=== PATIENT | male | born 1995 | race Caucasian/White ===

== ENCOUNTER 2021-08-08 07:28 | Outpatient (REF) | payer OTHER, SELFPAY ==
[2021-08-08 11:52] LABS: Appearance Urine CLEAR; Color Urine YELLOW; Glucose Urine UA NEG (NEG); Leukocyte Esterase Urine NEG (NEG); Nitrite Urine NEG (NEG); PH 6.5 (5.0-8.0); Urine Blood NEG (NEG); Urine Ketones NEG (NEG); Urine Protein NEG (NEG-TRACE)
[2021-08-08 12:01] LABS: Alanine Aminotransferase 27 U/L (0-40); Albumin Level 4.7 g/dL (3.5-5.0); Anion Gap 13 (12-20); Aspartate Amino Transferase 18 U/L (5-37); Bilirubin Total 0.8 mg/dL (0.0-1.0); Blood Urea Nitrogen 17 mg/dL (9-16); Calcium 9.7 mg/dL (8.4-10.2); Carbon Dioxide 27 mmol/L (22-29); Chloride 103 mmol/L (96-108); Estimated Glomerular Filt Rate > 60; Glucose Fasting 83 mg/dL (60-99); Potassium 4.3 mmol/L (3.3-5.1); Sodium 139 mmol/L (135-145); Total Protein 7.9 g/dL (6.5-8.0)
[2021-08-08 12:02] LABS: Alkaline Phosphatase 65 U/L (39-117); Cholesterol 202 mg/dL; HDL Cholesterol 65 mg/dL; LDL Cholesterol Calculated 125 mg/dl; Triglycerides 62 mg/dL
[2021-08-08 12:11] LABS: TSH reflex Free T4 1.63 uIU/mL (0.32-4.0)
== END 2021-08-08 07:29 | disposition home or self-care (01) ==
LOC: HO.HMGCLDS 07:28
PROVIDERS: PCP Nurse Practitioner Family; Visit Provider Nurse Practitioner Family
DX: F33.9 Major depressive disorder, recurrent, unspecified (principal)
CPT/HCPCS: 36415; 80053; 80061; 81003; 84443

== ENCOUNTER 2023-07-01 07:44 | Outpatient (AMB) | payer OTHER, SELFPAY ==
--- NOTE | 2023-07-01 07:15 | A.OFFPC_ITS ---
Intake Visit Reasons: Discuss Mental Health Iphone [phone] Allergies No Known Allergies Allergy (Unverified 02/05/23 17:09) Tobacco use date assessed: 02/05/23 HPI Discuss Mental Health Iphone [phone] HPI Details Pt c/o increased anxiety and depression. Pt is currently taking sertraline 50mg and is compliant with this med. Will increase this to 100mg. Denies any SI and HI. Will follow up with pt in approx 1 month PFSH Family History Other Mental health disorder Social History Housing: House Patient Tobacco Use Status: Current someday Tobacco user Tobacco use type: Cigarette Cigarettes Per Day: 1 Second Hand Smoke Exposure: No Current occupational status: employed Cognitive needs: No Hearing needs: No Vision needs: No Questionnaire Thrive Questionnaire Date Thrive assessed: 02/05/23 MATHEW-7 AMB Questionnaire MATHEW-7 Date MATHEW - 7 assessed: 02/05/23 Source: Developed by Drs. Parth Kiran, Yara Abdi, Jimmy Nguyen and colleagues, with an educational maryanne from [employer]. Review of Systems Const Reports as per HPI Physical exam (Primary Care) Tobacco/Smoking Status: Tobacco use Status Tobacco use date assessed 02/05/23 02/05/23 16:54 Patient Tobacco Use Status Current someday Tobacco 02/05/23 16:54 Tobacco use type Cigarette 02/05/23 16:54 Thrive Assessment: Date of Thrive Assessment Date Thrive assessed 02/05/23 02/05/23 16:56 Const General: cooperative Orientation/consciousness: patient oriented x3 Neuro General: patient oriented x3 Psych Appearance: grossly normal Mental Status: mental status grossly normal Speech and movement: Clear speech present Affect: normal affect Attitude: cooperative Thought process: Normal thought process present Thought content: Normal thought content present Insight: Good insight present (Psych) Judgement: Good judgement present (Psych) Telehealth Telehealth Location of provider rendering services: practice address Location of patient: address on file Patient Identification confirmed using: Name, : Yes Telehealth method: video Patient verbally consented to treatment: Yes Patient verbally consented to billing insurance company: Yes Patient informed of any privacy concerns related to visit: Yes Minutes spent on Phone/Video with Pt.: 10 Assessment and Plan Assessment & Plan (1) Depression, major, recurrent: Code(s): F33.9 - Major depressive disorder, recurrent, unspecified Plan: Increased sertraline to 100mg (2) Anxiety: Code(s): F41.9 - Anxiety disorder, unspecified Plan: Increased sertraline to 100mg Plan The patient agreed to the use of a medical information specialist for this encounter. Scribed for TACHO Nieto by Ángela Peacock medical information specialist, on 07/01/2023 at 07:15 EST. Medications: Changed From sertraline 50 mg PO DAILY 30 days 30 tabs 2RF To sertraline 100 mg PO DAILY 30 days 30 tabs 2RF Coding Level of Care Code Tele Est Pt Level 3 (32086) Diagnoses Depression, major, recurrent F33.9 Anxiety F41.9
== END 2023-07-01 07:47 | disposition home or self-care (01) ==
PROVIDERS: PCP Nurse Practitioner Family; Visit Provider Nurse Practitioner Family
DX: F33.9 Major depressive disorder, recurrent, unspecified (principal); F41.9 Anxiety disorder, unspecified
CPT/HCPCS: 99213

== ENCOUNTER 2023-09-17 12:55 | Emergency (ER) | payer OTHER, SELFPAY ==
--- NOTE | ~2023-09-17 | XR_ITS ---
EXAMINATION: XR WRIST, LEFT CLINICAL INFORMATION: Laceration from chainsaw COMPARISON: None available. TECHNIQUE: PA, lateral, and oblique views of the left wrist. FINDINGS: There is a question of a tiny bone fragment arising from the pisiform seen only on the lateral radiograph (fleming image). This appears to be in the region of the skin wound. The bones and soft tissues are otherwise unremarkable. No other fracture. Alignment is anatomic with normal joint spaces. No erosions or abnormal soft tissue calcifications. XR/XR wrist LT 2V IMPRESSION: Question of a tiny bone fragment arising from the pisiform seen only on the lateral radiograph.
[2023-09-17 12:59] VITALS: BP 126/89; BP 167/81; PULSE 70; PULSE 92; RESP 16; TEMP 37; O2SAT 98; O2SAT 99; BMI 24.4
--- NOTE | 2023-09-17 13:11 | ED_ITS ---
HPI - Extremity Problem General Chief complaint: Extremity Injury, Upper Stated complaint: cut l wrist w/table saw @ work,not bleeding per em Time Seen by Provider: 09/17/23 12:57 Source: patient, EMS and RN notes reviewed Mode of arrival: EMS Limitations: no limitations History of Present Illness HPI Narrative: Patient is a 28-year-old male presenting to the emergency department with laceration to left wrist sustained on a band saw accidentally at work prior to arrival. Reports last Tdap was 2017. Reports minimal pain at this time. Reports full ROM to fingers, denies any numbness or tingling. MD Complaint: other (wrist laceration) Onset (ago): hour(s) Pain Consistency: constant Location: left, upper extremity and other (wrist) Severity scale (1-10): 2 Quality: aching Radiation: none Relieving factors: nothing Exacerbating factors: nothing Associated symptoms: denies other symptoms Related Data Previous Rx's Medication Instructions Recorded cetirizine 10 mg tablet 10 mg PO DAILY #90 tabs 08/08/21 sertraline 100 mg tablet 100 mg PO DAILY 30 days #30 tabs 07/01/23 cephalexin 500 mg capsule 500 mg PO QID 5 days #20 caps 09/17/23 Allergies Allergy/AdvReac Type Severity Reaction Status Date / Time No Known Allergies Allergy Unverified 09/17/23 13:04 Review of Systems Review of Systems: As per HPI. Yes all other systems are reviewed and are negative Constitutional: Constitutional: Reports as per HPI [facility] Family History Family History Other Mental health disorder Social History Social History Housing: House Patient Tobacco Use Status: Current someday Tobacco user Tobacco use type: Cigarette Cigarettes Per Day: 1 Second Hand Smoke Exposure: No Advance Directives: No Current occupational status: employed Cognitive needs: No Hearing needs: No Vision needs: No Physical Exam Vital Signs: Vital Signs: Last Vital Signs Temp 98.6 F 09/17/23 12:59 Pulse 92 09/17/23 12:59 Resp 16 09/17/23 12:59 BP 167/81 H 09/17/23 12:59 Pulse Ox 99 09/17/23 12:59 O2 Del Method Room Air 09/17/23 12:59 BMI result Body Mass Index 24.4 Vital signs have been reviewed and appear to be correct. Blood pressure elevated. Heart rate normal. Respiratory rate normal. Temperature normal. Oxygen saturation normal. Const: General: cooperative, healthy appearing and no acute distress Orientation/consciousness: oriented to person, oriented to place, oriented to time and patient oriented x3 Limitations: no limitations HEENT: Head: Yes normocephalic and Yes atraumatic Ears: external ears normal General nose exam: Normal external nose present Face and sinus: Yes face symmetric Mouth: oropharynx normal and moist mucous membranes Throat: Yes uvula midline Eyes: Pupils: Equal, round and reactive pupils present Neck: Neck: Yes normal visual inspection and Yes supple Resp: Effort & Inspection: normal respiratory effort and able to speak in complete sentences Auscultation: clear to auscultation bilaterally Cardio: Rate: regular rate Rhythm: regular rhythm Heart sounds: S1 normal heart sound present and S2 normal heart sound present Skin: General skin exam: elasticity normal and turgor normal Trauma: laceration (4cm) left distal wrist linear, involves subcutaneous tissue, motor nerve function intact and sensation intact; not actively bleeding and no pulsatile bleeding Neuro: General: oriented to person, oriented to place, oriented to time, patient oriented x3, moves all extremities, no focal motor deficits and CN's II- XI intact bilaterally Cranial nerves: Yes Equal, round and reactive pupils present Cognition (Neuro): normal cognition Extrem: General: Yes full ROM Psych: Mental Status: mental status grossly normal Affect: normal affect Thought process: Normal thought process present Medications Administered Discontinued Medications Generic Name Dose Route Start Last Admin Trade Name Freq PRN Reason Stop Dose Admin Lidocaine HCl 5 ml 09/17/23 13:55 09/17/23 14:09 Lidocaine Hcl 1 % Mpf 5 Ml Vial INFILTRATI 09/17/23 13:56 5 ml ONCE ONE Administration Medical Decision Making Medical Decision Making [facility] Narrative: Patient is a 28-year-old male presenting to the emergency department with laceration to left wrist sustained on a band saw accidentally at work prior to arrival. On exam patient is awake, A+Ox3, VS WNL, afebrile, normal neurological exam without focal deficits, physical exam findings as above. Given reported symptoms and physical exam findings, initial differential includes laceration, open fracture. Tdap is up-to-date. Laceration repaired as per procedure note. Question of tiny bone fragment on x-ray, will give IV Ancef here and discharged home on cephalexin. Discussed case with ortho who will see patient in the office outpatient next week. Return precautions discussed. Patient instructed to assess wound daily for signs of infection and return if these occur. Patient verbalized understanding of and agreement with plan. Differential Diagnosis Differential Diagnoses: The differential diagnosis associated with the presentation includes As per MDM. Consult Healthcare Provider Management of the patient was discussed with: [employer] Installation Manager (Dr. Castro, ortho) Independent Interpretation I performed an independent interpretation of an: Plain X-Ray Interpretation: Possible tiny bone fragment from pisiform. Radiology Impression Discussion of test interpretation with radiology: I have reviewed the radiologist's reading. Radiologist Impression: XR/XR wrist LT 2V IMPRESSION: Question of a tiny bone fragment arising from the pisiform seen only on the lateral radiograph. External Record Review External record reviewed: Inpatient record, Office record and Outpatient record Prescription Management I considered prescription management with: Antibiotic Procedures Laceration Laceration 1: Site: upper extremity (wrist, radial side) Side (If applicable): left Size (cm): 4 Description: linear Depth: simple, single layer Local Anesthetic: lidocaine 1% Amount of anesthesia used (mL): 5 Pre-repair: wound explored, irrigated extensively and deep structures intact Skin layer closed with: nylon Size (cm): 4-0 Number of sutures: 9 Technique: simple, interrupted Discharge Plan Discharge Clinical Impression: Laceration of left wrist Open fracture of pisiform bone of wrist Qualifiers: Encounter type: initial encounter Laterality: left Patient Disposition: Home, Self-Care Instructions: Care For Your Stitches (DC), Laceration (DC), Stitches Removal (ED) Additional Instructions: You have been evaluated in the emergency department today for a laceration to your wrist. Your laceration was repaired in the emergency department with sutures. Please keep the area surrounding the laceration clean and dry and keep dressing in place for the next 24 hours. After that please change the dressing and assess the wound daily. Keep the area out of direct sunlight for the next 6 months to help prevent scarring. You should have the sutures removed in 7-10 days. If you develop fever, redness, swelling at the site of your laceration, or thick yellow drainage please come back to the ER for a wound check. Your x- ray showed evidence of a tiny bone fragment in the area of your laceration. You are being referred to orthopedics for further management, please call their office for an appointment. You are being prescribed antibiotics because this is an open fracture, please complete the full course of antibiotics as prescribed. Prescriptions: New cephalexin 500 mg capsule 500 mg PO QID 5 Days Qty: 20 0RF No Action cetirizine 10 mg tablet 10 mg PO DAILY Qty: 90 1RF sertraline 100 mg tablet 100 mg PO DAILY 30 Days Qty: 30 2RF Referrals: [facility] [place] Group] Stand Alone Forms: Work/School Release
[2023-09-17] MEDS: Lidocaine HCl 1 % MPF 5 ML VIAL INFILTRATI (14:09)
[2023-09-17] MEDS: ceFAZolin Sodium/Dextrose,Iso 2 GM/50 ML PIGGYBACK IV (15:24)
--- NOTE | 2023-09-17 15:52 | PC.NURSE ---
Late entry: patient brought in by ambulance from work, per patient he accidentally cut his wrist on a bandsaw. CMS intact in left hand, 2 inch laceration to left wrist, bleeding controlled. Patient reports intial 2/10 pain. Yes[facility] SURG RN sutured inj. This RN placed 20g IV in RAC, Ancef administered per JAN. Patient educated on discharge instructions and has no further questions at this time
== END 2023-09-17 15:55 | disposition home or self-care (01) ==
PROVIDERS: Emergency Provider Student in an Organized Health Care Education/Training Program; PCP Nurse Practitioner Family
DX: S61.512A Laceration without foreign body of left wrist, initial encounter (principal); S62.162A Displaced fracture of pisiform, left wrist, initial encounter for closed fracture; W31.2XXA Contact with powered woodworking and forming machines, initial encounter; Y93.9 Activity, unspecified; Y92.9 Unspecified place or not applicable; Y99.0 Civilian activity done for income or pay; F17.210 Nicotine dependence, cigarettes, uncomplicated
CPT/HCPCS: 12002; 73100; 96365; 99283; 99284; J0690

== ENCOUNTER 2023-12-22 20:13 | Emergency (ER) | payer OTHER, SELFPAY ==
--- NOTE | ~2023-12-22 | XR_ITS ---
EXAMINATION: XR RIBS, RIGHT CLINICAL INFORMATION: Injury rule out fracture COMPARISON: None available. TECHNIQUE: 3 views of the right ribs were obtained. FINDINGS: PA chest and 3 views of right rib cage demonstrate no acute fractures and again there are 2 undisplaced fractures seen through the midshaft of the clavicle. Lungs are clear cardiomediastinal silhouette is normal and there is no evidence of pleural effusion XR/XR ribs RT min 3V w CXR1V IMPRESSION: Clinical or fractures.
--- NOTE | ~2023-12-22 | CT_ITS ---
EXAMINATION: CT CHEST WITHOUT CONTRAST CLINICAL INFORMATION: Trauma. Concern for fracture. COMPARISON: None available. TECHNIQUE: Multidetector volumetric CT imaging of the chest was done. Axial MIP volume rendering provided. Sagittal and coronal reformatted images were obtained. This CT examination was performed using dose optimization techniques as appropriate, variously including the following: *Automated exposure control *Adjustment of mA and/or kV according to patient size (this includes techniques or standardized protocols for targeted exams where dose is matched to indication/reason for exam; i.e. extremities or head) *Use of iterative reconstruction technique DLP: 424 mGy-cm FINDINGS: IT TECHNICAL ARCHITECT: Unremarkable. LUNGS: The lungs are clear with no evidence of inflammation or nodules. MEDIASTINUM: The mediastinum is normal. CORONARY ARTERY CALCIFICATION: None visualized on this study. PLEURA: There is no pleural effusion. No pleural mass or thickening. AXILLA: No lymphadenopathy. UPPER ABDOMEN: The liver is of diminished attenuation. OSSEOUS STRUCTURES: There is an undisplaced fracture of the distal one third of the right clavicle. CT/CT chest wo IV con IMPRESSION: 1. Undisplaced fracture of the distal one third of the right clavicle. 2. Hepatic steatosis. Fleischner guidelines were followed.
--- NOTE | ~2023-12-22 | XR_ITS ---
EXAMINATION: XR SHOULDER, RIGHT CLINICAL INFORMATION: Right shoulder trauma COMPARISON: None available. TECHNIQUE: AP external rotation, Grashey, scapular Y views of the right shoulder. FINDINGS: There are 2 linear fractures seen through the midshaft of the clavicle. The bones and soft tissues are normal. No fracture. Glenohumeral and acromioclavicular alignment is anatomic with normal joint space. No abnormal soft tissue calcifications. XR/XR shoulder RT min 2V IMPRESSION: Normal right shoulder. Fractures in the clavicle
--- NOTE | ~2023-12-22 | XR_ITS ---
EXAMINATION: XR CLAVICLE, RIGHT CLINICAL INFORMATION: Injury COMPARISON: None available. TECHNIQUE: 2 views of clavicle of the right clavicle. FINDINGS: There are 2 fractures seen through the clavicle without displacement of fragments no fracture is seen in the mid clavicular body. XR/XR clavicle RT IMPRESSION: 2 linear fractures through the mid clavicular body without displacement.
--- NOTE | ~2023-12-22 | CT_ITS ---
EXAMINATION: CT head/brain wo IV con, CT cervical spine wo IV con INDICATION INFORMATION: Reason for Exam LOC, injury COMPARISON: None TECHNIQUE: Separate noncontrast CT examinations of the head and cervical spine were performed. Coronal and sagittal images were created for each examination at the technologist workstation. This CT examination was performed using dose optimization techniques as appropriate, variously including the following: *Automated exposure control *Adjustment of mA and/or kV according to patient size (this includes techniques or standardized protocols for targeted exams where dose is matched to indication/reason for exam; i.e. extremities or head) *Use of iterative reconstruction technique DLP: 11 70 mGy-cm FINDINGS: Head: No acute osseous or soft tissue abnormality. The mastoid air cells and visualized portions of the paranasal sinuses are well aerated. There is no evidence of acute intracranial hemorrhage or territorial infarction. No abnormal mass effect or midline shift is seen. Islas to white matter differentiation is well preserved. No extra-axial fluid collections are identified. No hydrocephalus. No significant volume loss. There is no abnormal attenuation within the brain parenchyma. Cervical spine: There is no evidence of acute cervical spine fracture. Vertebral bodies remain normal in height. Alignment is maintained. Disc space heights are maintained. No pre- or paravertebral soft tissue abnormality is identified. Visualized portions of the lung apices are unremarkable. The thyroid gland is unremarkable. Minimally displaced right mid clavicle fracture with adjacent hematoma. CT/CT cervical spine wo IV con IMPRESSION: 1. No acute intracranial abnormality. 2. No cervical spine fracture or traumatic malalignment. 3. Minimally displaced right mid clavicle fracture
[2023-12-22 20:22] VITALS: BP 136/91; PULSE 88; RESP 18; TEMP 36.8; O2SAT 97; BMI 24.4
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
--- NOTE | 2023-12-22 20:57 | PC.NURSE ---
Pt had one episode of vomiting in CT, sts related to standing for xrays, became dizzy with no LOC. CT completed successfully.
[2023-12-23 00:05] VITALS: BP 123/81; PULSE 81; RESP 16; TEMP 36.8; O2SAT 97
[2023-12-23 00:55] VITALS: BP 127/80; PULSE 84; RESP 16; TEMP 36.8; O2SAT 97
--- NOTE | 2023-12-23 02:18 | PC.NURSE ---
pt a&o, cms intact upon discharge, no respiratory distress, Reviewed discharge instructions with pt pt verbalized understanding. pt had a steady gait upon discharge.
== END 2023-12-23 02:21 | disposition home or self-care (01) ==
PROVIDERS: Emergency Provider Student in an Organized Health Care Education/Training Program; PCP Nurse Practitioner Family
DX: S42.001A Fracture of unspecified part of right clavicle, initial encounter for closed fracture (principal); R07.89 Other chest pain; M25.511 Pain in right shoulder; R51.9 Headache, unspecified; M54.2 Cervicalgia; R07.81 Pleurodynia; V86.55XA Driver of 3- or 4- wheeled all-terrain vehicle (ATV) injured in nontraffic accident, initial encounter; Y93.9 Activity, unspecified; Y92.410 Unspecified street and highway as the place of occurrence of the external cause; Y99.9 Unspecified external cause status; F17.210 Nicotine dependence, cigarettes, uncomplicated
CPT/HCPCS: 70450; 71101; 71250; 72125; 73000; 73030; 99284

== ENCOUNTER 2024-09-21 08:09 | Outpatient (AMB) | payer OTHER, BC, SELFPAY ==
--- NOTE | 2024-09-21 07:06 | A.OFFPC_ITS ---
Intake Visit Reasons: Regular visit Allergies No Known Allergies Allergy (Verified 09/21/24 07:06) Medication List - Last Reconciled 09/21/24 by TACHO Laguerre cetirizine 10 mg PO DAILY fluoxetine 20 mg PO DAILY Tobacco use date assessed: 02/05/23 HPI Regular visit HPI Details Anxiety/depression: Pt reports recently being admitted to an inpatient program due to SI. His sertraline was stopped and he was started on fluoxetine 20mg. Pt is seeing a psychiatrist in approx 3 weeks. Denies any current SI and HI. I will reach out to our provider to help pt find a requested in house therapist rather than telehealth therapist. He knows to go to the ER with any SI. NOTE: pt is going through a divorce. He has started a new job as well. He is excited to be done with this and move on with the divorce. [facility] Family History Other Mental health disorder Social History Housing: House Patient Tobacco Use Status: Current someday Tobacco user Tobacco use type: Cigarette Cigarettes Per Day: 1 Second Hand Smoke Exposure: No Current occupational status: employed Cognitive needs: No Hearing needs: No Vision needs: No Questionnaire Thrive Questionnaire Date Thrive assessed: 02/05/23 MATHEW-7 AMB Questionnaire MATHEW-7 Date MATHEW - 7 assessed: 02/05/23 Source: Developed by Drs. Parth Kiran, Yara Abdi, Jimmy Nguyen and colleagues, with an educational maryanne from [employer]. Review of Systems Const Reports as per HPI Physical exam (Primary Care) Tobacco/Smoking Status: Tobacco use Status Tobacco use date assessed 02/05/23 09/21/24 07:06 Patient Tobacco Use Status Current someday Tobacco 09/21/24 07:06 Tobacco use type Cigarette 09/21/24 07:06 Thrive Assessment: Date of Thrive Assessment Date Thrive assessed 02/05/23 09/21/24 07:06 Const General: cooperative Orientation/consciousness: patient oriented x3 Neuro General: patient oriented x3 Psych Appearance: grossly normal Mental Status: mental status grossly normal Speech and movement: Clear speech present Affect: normal affect Attitude: cooperative Thought process: Normal thought process present Thought content: Normal thought content present Insight: Good insight present (Psych) Judgement: Good judgement present (Psych) Telehealth Telehealth Telehealth Platform: [employer] Location of provider rendering services: practice address Location of patient: address on file Patient Identification confirmed using: Name, : Yes Telehealth method: video Patient verbally consented to treatment: Yes Patient verbally consented to billing insurance company: Yes Patient informed of any privacy concerns related to visit: Yes Minutes spent on Phone/Video with Pt.: 10 Coding Level of Care Code Tele Est Pt Level 3 (47958) Diagnoses Depression, major, recurrent F33.9 Assessment & Plan Assessment & Plan (1) Depression, major, recurrent: Code(s): F33.9 - Major depressive disorder, recurrent, unspecified Category: Medical Plan: currently started on fluoxetine (approx 2 weeks ago). Does not have any current SI or HI. Pt will be meeting with his psychiatrist in approx 3 weeks. Knows to seek help if SI returns. Will reach out to our team to help find pt a in house therapist. Plan The patient agreed to the use of a durable medical equipment repairer for this encounter. Scribed for TACHO Nieto by Ángela Peacock durable medical equipment repairer, on 09/21/2024 at 07:05 EST.
== END 2024-09-21 08:09 | disposition home or self-care (01) ==
LOC: HO.HMCC 08:09
PROVIDERS: PCP Nurse Practitioner Family; Visit Provider Nurse Practitioner Family
DX: F33.9 Major depressive disorder, recurrent, unspecified (principal)

== ENCOUNTER → 2024-11-08 09:00 | Outpatient (BNV) | payer OTHER, SELFPAY | PROVIDERS: Visit Provider Psychiatry & Neurology Psychiatry | DX: F32.A Depression, unspecified (principal); F41.9 Anxiety disorder, unspecified; F10.10 Alcohol abuse, uncomplicated | CPT/HCPCS: 90792 ==

== ENCOUNTER 2024-12-02 09:00 | Outpatient (RCR) | payer OTHER, SELFPAY ==
[2024-11-07 09:50] VITALS: BMI 22.1
[2024-11-07 10:00] VITALS: BP 104/68; PULSE 76; TEMP 36.7
--- NOTE | 2024-11-07 12:29 | PC.ADMIT ---
Patient is a 29 year old male who is from his who self referred to [facility] d/t increased depression and anxiety since August 2024. Patient is in the process of a divorce from his after 6 months of marriage. He stated he does not know why his wants a divorce. He stated they have known each other for 3 years and have lived together for 2 of those years. 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 Patient feels he is having a difficult time concentrating when he is thinking about the divorce. He reports his parents are supportive and is spending a lot of time with them. Patient stated he is working while attending the program as he stated his work is scheduled 4 days on work then 4 days off work. He is scheduled this week to attend the program on Thursday, Thursday, and . Patient reports history of drinking alcohol on the weekends with friends drinking 5-6 beers and 2-3 shots. Stated about 3 months ago he stopped using alcohol then about a month ago he started drinking 2-3 beers daily. After he met with is prescriber on October 14, 2024 and had a conversation about his alcohol use he decided to quit drinking alcohol. Patient also cut back on Marijuana use and currently uses once in a while compared to using daily throughout the day which started in August 2024. Patient is alert and oriented x4. Calm and cooperative. He presented with depressed mood and anxious affect. He denied SI, no HI. His thoughts are logical and clear. He was given a copy of his safety plan if needed. Medications reconciled with patient and patient's pharmacy. He has a history of non compliance with medication however he reports he is currently taking his medications as prescribed. He stated he currently has a morning routing that helps him remember to take medications daily.
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
--- NOTE | 2024-11-10 16:10 | HO.IOP ---
Client's case has been opened and reviewed in team.
--- NOTE | 2024-11-15 21:50 | P.PNPSP_ITS ---
Subjective Subjective Date of Service: 11/15/24 Reason For Visit: anxiety,SADD Mental Status Exam Mental Status Exam Narrative: Alert, oriented, in no acute distress. Calm, cooperative, engaged. No psychomotor agitation or neurovegetative retardation. Eye contact maintained. Mood depressed, affect constricted. Speech normal. Thought process linear, coherent. Thought content related to stressors, transient hopelessness, denies SI or HI. No paranoia or delusional content elicited. No evidence of psychosis. Insight and judgment - fair but adequate. Diagnostics Vital Signs (24Hr): BMI result Body Mass Index 22.1 Assessment & Plan Assessment & Plan (1) Depressive disorder: Status: Acute Code(s): F32.A - Depression, unspecified Assessment and Plan: Hx of Seasonal affective disorder MDD, single, moderate vs Adjustment Disorder (2) Anxiety disorder, unspecified: Status: Acute Code(s): F41.9 - Anxiety disorder, unspecified (3) Attention and concentration deficit: Status: Acute Code(s): R41.840 - Attention and concentration deficit Plan start buproprion SR 100 mg qam start guanfacine ER 1 mg qam to target anxiety (in lieu of propranolol) hold propranolol continue fluoxetine 40 mg qam continue lorazepam 0.5 mg qd (#7) to help with social anxiety and tolerating groups may consider buspirone if anxiety persists, or mirtazapine for sleep continue other regular medications? Routine lab work ordered as indicated EKG, routine for baseline QTc for medication considerations as indicated UDS as indicated Continue to monitor Certification I certify that the patient needs IOP Services for a minimum of 9 hours per week of therapeutic services. I certify the patient is experiencing symptoms of such intensity that they are unable to be safely treated in a less intensive setting and would otherwise require?admission to a more intensive level of care. Total time managing care of this patient today ____ minutes. Discharge Plan Discharge Attending provider: Katelyn Solomon Medications: New dextroamphetamine-amphetamine 5 mg capsule,extended release 24hr 5 mg PO QAM Qty: 30 0RF Rx Instructions: Partial Fill upon patient request. dextroamphetamine-amphetamine 5 mg tablet 5 mg PO DAILY Qty: 20 0RF Rx Instructions: Partial Fill upon patient request. guanfacine 2 mg tablet extended release 24 hr 2 mg PO DAILY Qty: 30 0RF guanfacine 1 mg tablet extended release 24 hr 1 mg PO QPM Qty: 30 0RF fluoxetine 10 mg capsule 30 mg PO DAILY Qty: 90 0RF Continued propranolol 20 mg Tablet 20 mg PO TID Rx Instructions: Last filled 10/15/24 Discontinued clonazepam 0.5 mg Tablet 0.5 mg PO DAILY PRN (Reason: Anxiety) Rx Instructions: Last filled 10/15/24 hydroxyzine HCl 25 mg Tablet 25 mg PO TID PRN (Reason: Anxiety) Rx Instructions: Last filled 10/15/24. fluoxetine 20 mg tablet 40 mg PO DAILY Patient Comments: Patient reports that his prescriber increased Fluoxetine to 40 mg daily from 20 mg daily. Rx Instructions: Last filled 10/25/24 Stand Alone Forms: Patient Portal Discharge page Patient Education: ADHD in Adults (ED), ADHD in Adults (DC), Depression (DC), Anxiety (ED) Print Language: Spanish
--- NOTE | 2024-11-25 20:13 | HO.PHPPROGNO ---
Subjective Subjective Date of Service: 11/25/24 Reason For Visit: anxiety,SADD Mental Status Exam Mental Status Exam Narrative: Alert, oriented, in no acute distress. Calm, cooperative, engaged. No psychomotor agitation or neurovegetative retardation. Eye contact maintained. Mood depressed, affect constricted. Speech normal. Thought process linear, coherent. Thought content related to stressors, transient hopelessness, denies SI or HI. No paranoia or delusional content elicited. No evidence of psychosis. Insight and judgment - fair but adequate. Diagnostics Vital Signs (24Hr): BMI result Body Mass Index 22.1 Assessment & Plan Assessment & Plan (1) Depressive disorder: Status: Acute Code(s): F32.A - Depression, unspecified (2) Anxiety disorder, unspecified: Status: Acute Code(s): F41.9 - Anxiety disorder, unspecified (3) Alcohol abuse: Status: Acute Code(s): F10.10 - Alcohol abuse, uncomplicated (4) Attention and concentration deficit: Status: Acute Code(s): R41.840 - Attention and concentration deficit Plan extend PHP start Adderall 2.5-5 mg qam plan to transition onto Adderall XR continue buproprion SR 100 mg qam continue guanfacine ER 1 mg qam to target anxiety (in lieu of propranolol) hold propranolol continue fluoxetine 40 mg qam continue lorazepam 0.5 mg qd (#7) to help with social anxiety and tolerating groups may consider buspirone if anxiety persists, or mirtazapine for sleep continue other regular medications? Routine lab work ordered as indicated EKG, routine for baseline QTc for medication considerations as indicated UDS as indicated Continue to monitor Patient educated on: diagnosis and medication risk/benefits Informed Consent: understands Reason for contiued partial hosp. stay Substantial Risk for: med/psych decompensation Certification I certify that the patient needs IOP Services for a minimum of 9 hours per week of therapeutic services. I certify the patient is experiencing symptoms of such intensity that they are unable to be safely treated in a less intensive setting and would otherwise require?admission to a more intensive level of care. Total time managing care of this patient today __30__ minutes. Discharge Plan Discharge Attending provider: Katelyn Solomon Medications: New lorazepam 0.5 mg tablet 0.5 mg PO DAILY PRN (Reason: social anxiety) Qty: 7 0RF bupropion HCl 100 mg tablet sustained-release 12 hr 100 mg PO QAM Qty: 14 0RF guanfacine 1 mg tablet extended release 24 hr 1 mg PO DAILY Qty: 14 0RF dextroamphetamine-amphetamine 5 mg capsule,extended release 24hr 5 mg PO QAM Qty: 30 0RF Rx Instructions: Partial Fill upon patient request. dextroamphetamine-amphetamine 5 mg tablet 5 mg PO DAILY Qty: 20 0RF Rx Instructions: Partial Fill upon patient request. Continued propranolol 20 mg Tablet 20 mg PO TID Rx Instructions: Last filled 10/15/24 hydroxyzine HCl 25 mg Tablet 25 mg PO TID PRN (Reason: Anxiety) Rx Instructions: Last filled 10/15/24. fluoxetine 20 mg tablet 40 mg PO DAILY Qty: 30 0RF Rx Instructions: Last filled 10/25/24 No Action clonazepam 0.5 mg Tablet 0.5 mg PO DAILY PRN (Reason: Anxiety) Rx Instructions: Last filled 10/15/24 Stand Alone Forms: Patient Portal Discharge page Print Language: Greenlandic
--- NOTE | 2024-12-02 23:37 | HO.PHPPROGNO ---
Subjective Subjective Date of Service: 12/02/24 Reason For Visit: anxiety,SADD Mental Status Exam Mental Status Exam Narrative: Alert, oriented, in no acute distress. Calm, cooperative, engaged. No psychomotor agitation or neurovegetative retardation. Eye contact maintained. Mood depressed, affect constricted. Speech normal. Thought process linear, coherent. Thought content related to stressors, transient hopelessness, denies SI or HI. No paranoia or delusional content elicited. No evidence of psychosis. Insight and judgment - fair but adequate. Diagnostics Vital Signs (24Hr): BMI result Body Mass Index 22.1 Assessment & Plan Assessment & Plan (1) Seasonal affective disorder: Status: Acute Code(s): F33.8 - Other recurrent depressive disorders (2) ADHD (attention deficit hyperactivity disorder), inattentive type: Status: Acute Code(s): F90.0 - Attention-deficit hyperactivity disorder, predominantly inattentive type (3) Anxiety disorder, unspecified: Status: Acute Code(s): F41.9 - Anxiety disorder, unspecified Plan start buproprion SR 100 mg qam start guanfacine ER 1 mg qam to target anxiety (in lieu of propranolol) hold propranolol continue fluoxetine 40 mg qam continue lorazepam 0.5 mg qd (#7) to help with social anxiety and tolerating groups may consider buspirone if anxiety persists, or mirtazapine for sleep continue other regular medications? Routine lab work ordered as indicated EKG, routine for baseline QTc for medication considerations as indicated UDS as indicated Continue to monitor Certification I certify that partial hospital treatment is medically necessary due to the symptoms and problems resulting from the patient's mental illness and the failure to treat the patient at the partial hospital level of care would likely result in the patient requiring inpatient psychiatric care which could not be prevented at a less intensive level of care. Total time managing care of this patient today ____ minutes. Discharge Plan Discharge Attending provider: Katelyn Solomon Medications: New dextroamphetamine-amphetamine 5 mg capsule,extended release 24hr 5 mg PO QAM Qty: 30 0RF Rx Instructions: Partial Fill upon patient request. dextroamphetamine-amphetamine 5 mg tablet 5 mg PO DAILY Qty: 20 0RF Rx Instructions: Partial Fill upon patient request. guanfacine 2 mg tablet extended release 24 hr 2 mg PO DAILY Qty: 30 0RF guanfacine 1 mg tablet extended release 24 hr 1 mg PO QPM Qty: 30 0RF fluoxetine 10 mg capsule 30 mg PO DAILY Qty: 90 0RF Continued propranolol 20 mg Tablet 20 mg PO TID Rx Instructions: Last filled 10/15/24 Discontinued clonazepam 0.5 mg Tablet 0.5 mg PO DAILY PRN (Reason: Anxiety) Rx Instructions: Last filled 10/15/24 hydroxyzine HCl 25 mg Tablet 25 mg PO TID PRN (Reason: Anxiety) Rx Instructions: Last filled 10/15/24. fluoxetine 20 mg tablet 40 mg PO DAILY Patient Comments: Patient reports that his prescriber increased Fluoxetine to 40 mg daily from 20 mg daily. Rx Instructions: Last filled 10/25/24 Stand Alone Forms: Patient Portal Discharge page Patient Education: ADHD in Adults (ED), ADHD in Adults (DC), Depression (DC), Anxiety (ED) Print Language: Mongolian
== END 2024-12-02 23:59 | disposition home or self-care (01) ==
LOC: HO.IOP 09:00
PROVIDERS: Visit Provider Psychiatry & Neurology Psychiatry
DX: F33.8 Other recurrent depressive disorders (principal); F90.0 Attention-deficit hyperactivity disorder, predominantly inattentive type; F41.9 Anxiety disorder, unspecified; F10.10 Alcohol abuse, uncomplicated; Z79.899 Other long term (current) drug therapy
CPT/HCPCS: 90791; H0015; S9480

== ENCOUNTER 2024-12-02 12:02 | Outpatient (REF) | payer OTHER, SELFPAY ==
[2024-12-02 12:22] LABS: MANUAL DIFF FLAG NO
[2024-12-02 13:20] LABS: Basophils Percent Auto 0.3 % (0-2); Eosinophils Percent Auto 0.2 % (0-4); Hematocrit 47.8 % (42.0-52.0); Hemoglobin 16.2 g/dl (14.0-18.0); Imm Gran Abs Auto 0.03 X10*3/uL (0.00-0.03); Imm Gran Pct Auto 0.3 % (0.0-0.4); Lymphocytes Absolute Auto 1.3 X10*3/uL (1.2-4.9); Lymphocytes Percent Auto 11.1 % (20-40); Mean Corpuscular HGB Conc 33.9 g/dl (31.0-36.0); Mean Corpuscular Hemoglobin 28.2 pg (27.0-33.0); Mean Corpuscular Volume 83.1 fL (80.0-98.0); Mean Platelet Volume 8.9 fL (9.4-12.4); Monocytes Absolute Auto 0.7 X10*3/uL (0.1-1.2); Monocytes Percent Auto 6.6 % (2-11); Neutrophils Absolute Auto 9.2 x10*3/uL (2.0-8.3); Neutrophils Percent Auto 81.5 % (45-73); Platelet Count 450 X10*3/uL (160-400); Red Blood Count 5.75 X10*6/uL (4.60-5.80); Red Cell Distribution Width 11.5 % (11.0-16.0); White Blood Count 11.2 X10*3/uL (4.8-10.8)
[2024-12-02 13:39] LABS: Estimated Average Glucose 97 mg/dL; Hemoglobin A1C 132.4477 umol/L; Total Hemoglobin (HGBA1C) 4268.1289 umol/L
[2024-12-02 14:32] LABS: Folate 11.7 ng/mL (> or = 4.0); Vitamin B12 828 pg/mL (200-900)
[2024-12-02 15:03] LABS: Alanine Aminotransferase 34 U/L (0-40); Alkaline Phosphatase 78 U/L (39-117); Anion Gap 14 (12-20); Aspartate Amino Transferase 21 U/L (5-37); Bilirubin Total 0.4 mg/dL (0.0-1.0); Blood Urea Nitrogen 14 mg/dL (9-16); C Reactive Protein 0.18 mg/dL (< or = 0.50); Carbon Dioxide 24 mmol/L (22-29); Chloride 107 mmol/L (96-108); Estimated Glomerular Filt Rate > 60; Glucose Random 75 mg/dL (60-115); Magnesium 2.4 mg/dL (1.6-2.6); Potassium 3.8 mmol/L (3.3-5.1); Sodium 141 mmol/L (135-145); Thyroid Stimulating Hormone 0.87 uIU/mL (0.32-4.0); Total Protein 8.7 g/dL (6.5-8.0); Vitamin D 25-OH Total 32.8 ng/mL (>30)
[2024-12-02 20:37] LABS: Erythrocyte Sedimentation Rate 2 MM/HR (0-15)
[2024-12-03 07:49] LABS: Syphilis Screen Nonreactive (Nonreactive)
[2024-12-03 08:19] LABS: HBS Num1 2.28 mIU/mL (0-7.99); HBc Num1 0.09 S/CO (0.00-0.79); HIV AB/AG Nonreactive (Nonreactive); HIV Num 1 0.06 S/CO (0.00-0.99); Hepatitis B Core Antibody Nonreactive (Nonreactive); Hepatitis B Surface Antigen Negative (Negative); ~HepC Num1 0.07 S/CO (0.00-0.79); ~Hepatitis B Surface Antibody NONREACTIVE (Nonreactive); ~Hepatitis C Antibody Nonreactive (Nonreactive)
[2024-12-05 16:53] LABS: Homocysteine 9.7 umol/L (<11.4)
[2024-12-13 05:34] LABS: Vitamin B1 13 nmol/L (8-30)
== END 2024-12-02 12:03 | disposition home or self-care (01) ==
LOC: HO.LAB 12:02
PROVIDERS: PCP Nurse Practitioner Family; Visit Provider Psychiatry & Neurology Psychiatry
DX: F33.9 Major depressive disorder, recurrent, unspecified (principal); F41.1 Generalized anxiety disorder; Z11.59 Encounter for screening for other viral diseases; Z72.89 Other problems related to lifestyle; Z13.1 Encounter for screening for diabetes mellitus
CPT/HCPCS: 36415; 80053; 82306; 82607; 82746; 83036; 83090; 83735; 84425; 84439; 84443; 85025; 85652; 86140; 86704; 86706; 86780; 86803; 87340; 87389

== ENCOUNTER 2025-01-02 09:06 | Outpatient (AMB) | payer OTHER, SELFPAY ==
[2025-01-02 09:11] VITALS: BP 122/80; PULSE 90; O2SAT 98; BMI 24.1
--- NOTE | 2025-01-02 09:11 | MHC.PC.OV ---
Vital Signs 01/02/25 09:11 Height 6 ft Weight 178 lb BMI 24.1 BP 122/80 Blood Pressure Location Lt brachial Position Sitting Pulse 90 Pulse Source Pulse Oximeter Pulse Oximetry (%) 98 Oxygen Delivery Method Room Air Intake Visit Reasons: PE Allergies No Known Allergies Allergy (Verified 01/02/25 09:51) Medication List - Last Reconciled 01/02/25 by TACHO Laguerre fluoxetine mg PO DAILY Tobacco use date assessed: 01/02/25 Dental Screening Dental Screen Date: 01/02/25 Did you have a dental visit in the last 12 months?: Yes Did you have a dental problem in the last 6 months where you did not have access to dental care?: No Was dental information given to patient?: Patient has dentist HPI PE HPI Details History of Present Illness The patient is a 29-year-old male presenting for a routine physical examination. During the visit, it was confirmed that he is engaged in mental health care, attended by both a psychiatrist and a psychologist. The patient reports doing well overall with his mental health treatment regimen. He explicitly denies suicidal ideation and homicidal ideation. No acute symptoms or specific concerns related to his psychiatric condition were reported during this visit. Health Maintenance Social History Review of Systems - Cardiovascular: Denies chest pain. - Respiratory: Denies shortness of breath. - Gastrointestinal: Denies constipation and diarrhea. Denies any presence of altered stool characteristics. Physical Exam General: Cooperative, healthy appearing, comfortable, no acute distress and well developed Orientation: Patient oriented x3 Limitations: No limitations Head: Normal to inspection Ears: Right tm unable to see due to cerumen, after ear lavage, TM easily seen. Nose: Normal external nose present Face and sinus: Normal facial exam Eyes: Appearance normal, both eyes and all related structures Neck: Normal visual inspection and Yes full ROM Respiratory: Normal respiratory effort and able to speak in complete sentences. Clear to auscultation bilaterally Cardiovascular: Regular rate and rhythm. Normal S1 and S2 GI: Normal to inspection. Soft to palpation and nontender Skin: No rashes or lesions noted Neuro: Patient oriented x3 Extremities: Normal to inspection Results Plan 1. Psychiatric Care The patient is currently attending regular sessions with both a psychiatrist and a psychologist. His mental health is reported as stable and he denies any acute psychiatric symptoms such as suicidal or homicidal ideation. Continued engagement in mental health services is advised, with no changes to his current management plan discussed. Discussion Notes During the visit, I discussed with the patient his ongoing psychiatric management. He confirmed that he sees both a psychiatrist and a psychologist regularly and reports doing well. We reviewed the importance of continuing with his mental health care to ensure ongoing stability and monitoring. No new psychiatric symptoms were reported, and no additional interventions were deemed necessary at this time. The patient is encouraged to maintain open communication with his mental health providers and to continue his current management plan as it effectively supports his well-being. Patient Instructions - Continue regular visits with your psychiatrist and psychologist as scheduled. - Maintain any treatment or therapeutic regimens provided by your mental health providers. - Monitor for any new or worsening symptoms and report them promptly to your mental health team. - Maintain a healthy lifestyle to support overall well-being. [facility] Medical History Asthma GERD (gastroesophageal reflux disease) History of concussion Surgical History No pertinent past surgical history Family History Other Mental health disorder Social History Household Members: None Housing: House Comment: Sharath discharge date has been extended until 12/02/24 Patient Tobacco Use Status: Never used Tobacco Tobacco use type: Cigarette Cigarettes Per Day: 1 Second Hand Smoke Exposure: No Current occupational status: employed Cognitive needs: No Hearing needs: No Vision needs: No Questionnaire PHQ-9 Over the last 2 weeks, how often have you been bothered by any of the following problems? 1. Little interest or pleasure in doing things: not at all 2. Feeling down, depressed, or hopeless: not at all 3. Trouble falling or staying asleep, or sleeping too much: several days 4. Feeling tired or having little energy: not at all 5. Poor appetite or overeating: not at all 6. Feeling bad about yourself - or that you are a failure or have let yourself or your family down: not at all 7. Trouble concentrating on things, such as reading the newspaper or watching television: not at all 8. Moving or speaking so slowly that other people could have noticed. Or the opposite - being so fidgety or restless that you have been moving around a lot more than usual: not at all 9. Thoughts that you would be better off or of hurting yourself in some way: not at all Total score: 1 Depression Screening Interpretation: Negative Depression Screening Done: Yes 89378 - PHQ-9 Billing: Yes Source: Developed by Drs. Parth Kiran, Yara Abdi, Jimmy Nguyen and colleagues, with an educational maryanne from [employer]. Thrive Questionnaire Date Thrive assessed: 01/02/25 I am a: Patient What is your living situation today?: I have a steady place to live Within the past 12 months, did the food you bought not last and you didn't have the money to get more?: Never true Within the past 12 months, did you worry whether your food would run out before you got money to buy more?: Never true Do you have trouble paying for medicines?: No Do you have trouble getting transportation to medical appointments?: No Do you have trouble paying your heating and electricity bill?: No Do you have trouble taking care of your child, family member or friend?: No Do you have trouble with day-to-day activities such as bathing, preparing meals, shopping, managing finances, etc.?: No Are you currently unemployed and looking for a job?: No Are you interested in more education?: No Please select the resources that you would like help with: None Currently or been in a relationship where the following occur: No concerns reported THRIVE Score: 0 AUDIT C Alcohol Use Questionnaire (AUDIT-C) 1. How often do you have a drink containing alcohol?: 2-4 times a month 2. How many drinks containing alcohol do you have on a typical day when you are drinking?: 5 or 6 3. How often do you have six or more drinks on one occasion?: Monthly Total Score: 6 Score Reviewed/Action Taken: Yes MATHEW-7 AMB Questionnaire MATHEW-7 Date MATHEW - 7 assessed: 01/02/25 Feeling nervous, anxious, or on edge: 1 = Several days Not being able to stop or control worryin = Several days Worrying too much about different things: 1 = Several days Trouble relaxin = Not at all Being so restless that it is hard to sit still: 0 = Not at all Becoming easily annoyed or irritable: 0 = Not at all Feeling afraid as if something awful might happen: 0 = Not at all Total MATHEW-7 score (0-4 normal; 5-9 mild; 10-14 moderate; 15-21 severe): 3 Source: Developed by Drs. Parth Kiran, Yara Abdi, Jimmy Nguyen and colleagues, with an educational maryanne from [employer]. MATHEW-7 Assessment Billing MATHEW-7 Assessment Tool: MATHEW-7 Assessment 72245 Physical exam (Primary Care) Vital Signs: Last Vital Signs Pulse 90 01/02/25 09:11 BP 122/80 01/02/25 09:11 Pulse Ox 98 01/02/25 09:11 Oxygen Delivery Method Room Air 01/02/25 09:11 BMI result Body Mass Index 24.1 Tobacco/Smoking Status: Tobacco use Status Tobacco use date assessed 01/02/25 01/02/25 09:12 Patient Tobacco Use Status Never used Tobacco 01/02/25 09:12 Tobacco use type Cigarette 01/02/25 09:12 PHQ-9: PHQ-9 Score PHQ-9: Total score 1 01/02/25 09:12 Depression Screening Interpretation: Negative Thrive Assessment: Date of Thrive Assessment Date Thrive assessed 01/02/25 01/02/25 09:12 Currently or been in a relationship where the following occur: No concerns reported Office Procedures Cerumen Removal From which ear canal was the cerumen removed: right Removal: irrigation Notes: patient tolerated procedure well, no complications and ear canal clear [id number] Irrigation/Lavage Coding Level of Care Code Est Pt Prev Care 18-39y(09162) Diagnoses Physical exam Z00.00 Depressive disorder F32.A Anxiety disorder, unspecified F41.9 Seasonal affective disorder F33.8 Cerumen impaction H61.20 CPT Codes Office Procedure - CPT: 35209-Qpe Irrigation/Lavage ([id number]) Additional Codes MATHEW-7 Assessment Billing - MATHEW-7 Assessment Tool: MATHEW-7 Assessment 87692 ([id number]) PHQ-9 - 29665 - PHQ-9 Billing: Yes ([id number]) Assessment & Plan Assessment & Plan (1) Physical exam: Code(s): Z00.00 - Encounter for general adult medical examination without abnormal findings Category: Medical (2) Depressive disorder: Code(s): F32.A - Depression, unspecified Category: Medical (3) Anxiety disorder, unspecified: Code(s): F41.9 - Anxiety disorder, unspecified Category: Medical (4) Seasonal affective disorder: Code(s): F33.8 - Other recurrent depressive disorders Category: Medical (5) Cerumen impaction: Code(s): H61.20 - Impacted cerumen, unspecified ear Category: Medical Plan . Orders: Orders Complete Blood Count Auto Diff Today Z00.00 - Encounter for general adult medical examination without abnormal findings Comprehensive [place]. Panel Fast Today Z00.00 - Encounter for general adult medical examination without abnormal findings UA CC w/rflx Micro + Cult Today Z00.00 - Encounter for general adult medical examination without abnormal findings Lipid Panel Today Z00.00 - Encounter for general adult medical examination without abnormal findings TSH reflex Free T4 Today Z00.00 - Encounter for general adult medical examination without abnormal findings
--- OUTSIDE RECORDS SUMMARY | 2025-01-02 09:43 | XMS_ITS | Clinical Summary ---
Author Organization [facility] Address [address] [place] [address] Phone Care Team Providers Care Overhauler Name Role Phone Unavailable Primary Care Provider Unavailabl e Immunizations Immunization Administration Dates Next Due DTaP 5 07/26/2001, 9,02/14/1998,11/27,1997 H1N1 09/03/2009 HPV, Quadrivalent 04/19/2014,12/05/2013,09/28/20 13 Hep A, ped/adol 10/09/2015,03/19/2015 Hep B, ped/adol 02/14/1998,1997,1997 Hib (PRP-T) 10/24/1998, 8,1997,09/18 IPV 07/26/2001, 9,1997,09/18 Influenza Split 08/30/2013, 2,09/22/2011,07/24,08/30/2002,09/17/2001 Influenza, injectable, quadrivalent 10/06/2016,1 12/10/2014 Influenza, injectable, quadr ivalent, preservative free 08/08/2014 Influenza, injectable, trivalent 009,09/05/2008,09/16/2007,09/21,08/20/2005,08/28/2004,09/20/2003 ,08/30/2002,09/17/2001 MMR 07/26/2001,07/25/1998 Meningococcal Conj (Menactra) MCV4P 10/09/2015,1 11/27/2008 Tdap 09/27/2009 Varicella 09/27/2009,07/25/1998 Family History Relation Name Status Comments Father Alive Father: Alive a nd well Maternal Grandfather Materna l grandfather: Hyperlipidemia Maternal Grandmother Materna l grandmother: Cancer, breast, Hyperlipidemia Mother Alive Mother: Obesity Other Family history of *Dental caries, Family history of Obesity, Family history of *Heart Disease, No family history of *CVA/Stroke, Family history of Seizure disorder, Family history of Strabismus, Family history of Asthma, No family history of *Sudden /[place] under 55, Family history of Hyperlipidemia Paternal Grandfather Paterjamison l grandfather: Sudden /[place] under 55 Sister Alive Sister: Alive a nd well Social History Tobacco Use Types Packs/Day Years Used Date Smoking Tobacco: Never Comments:Never smoker Sex and Gender Information Value Date Recorded Sex Assigned at Not on file Legal Sex Male 5:15 PM EDT Gender Identity Not on file Sexual Orientation Not on file Last Filed Vital Signs Vital Sign Reading Time Taken Comments Blood Pressure 118/73 10/06/2016 12:00 AM EST Pulse 61 10/06/2016 12:00 AM EST Temperature 36.9 ??C (98.4 ??F) 10/06/2016 12:[address] Respiratory Rate - - Oxygen Saturation 93% 03/06/2013 12:00 AM EDT Inhaled Oxygen Concentration - - Weight 75.3 kg (166 lb) 10/06/2016 12:00 AM EST Height 179.7 cm (5' 10.75 ) 10/09/2015 12:00 AM EST Body Mass Index 23.31 10/09/2015 12:00 AM EST Plan of Treatment Health Maintenance Due Date Last Done Comments Consider Men B Vaccine (1 of 2 - Bexsero 2-dose series) 2013 DTaP,Tdap,and Td Vaccines (7 - Td or Tdap) 09/27/2019 09/27/2009, 07/26/2001, 01/23/1999, Additional history exists Influenza Vaccines (#1) 2024 10/06/20 16, 10/09/2015, 08/08/2014, Additional history exists COVID-19 Vaccine ( - season) 2024 Hepatitis B Vaccines Completed 02/14/1998, 1997, 1997 HIB Vaccines Completed 10/24/1998, 06/1998, 1997, Additional history exists IPV Vaccines Completed 07/26/2001, 01/07, 1997, Additional history exists MMR Vaccines Completed 07/26/2001, 07/25/1998 Varicella Vaccines Completed 09/27/2009, 07/25/1998 HPV Vaccines Completed 04/19/2014, 11/10, 09/28/2013 Hepatitis A Vaccines Completed 10/09/2015, 03/19/20 15 Meningococcal Vaccine Completed 10/09/2015, 009 Men B Vaccine Aged Out No longer elig ible based on patient's age to complete this topic Pneumococcal Vaccine Aged Out No long er eligible based on patient's age to complete this topic
--- OUTSIDE RECORDS SUMMARY | 2025-01-02 09:43 | XMS_ITS | Encounter Summary ---
Author Organization [facility] Address [address] [place] [address] Phone Care Team Providers Care Roof Shingler Name Role Phone Aries Saxena MD Primary Care Provider [phone] Encounter Details Date Type Department Care Team (Late st Contact Info) Description 08/09/2014 Documentation EM Family Medicine [address] [place] [address] Family Medicine, Physician [address] [place], [place] [address] Social History Tobacco Use Types Packs/Day Years Used Date Smoking Tobacco: Never Assessed Sex and Gender Information Value Date Recorded Sex Assigned at Not on file Legal Sex Male 5:15 PM EDT Gender Identity Not on file Sexual Orientation Not on file documented as of this encounter Plan of Treatment Not on file documented as of this encounter Visit Diagnoses Not on filedocumented in this encounter Care Teams Roof Shingler Relationship Specialty Start Date End Date Aries Saxena MD [address] [place] [address] [place] [address] PCP - General 06/19/17 04/09/23 documented as of this encounter
--- OUTSIDE RECORDS SUMMARY | 2025-01-02 09:43 | XMS_ITS | Encounter Summary ---
Author Organization [facility] Address [address] [place] [address] Phone Care Team Providers Care Sheet Metal Operator Name Role Phone Aries Saxena MD Primary Care Provider [phone] Encounter Details Date Type Department Care Team (Late st Contact Info) Description 06/25/2017 Conversion Encounter [facility] [place] [address] [place] [address] Social History Tobacco Use Types Packs/Day Years [...] on filedocumented in this encounter Care Teams Sheet Metal Operator Relationship Specialty Start Date End Date Aries Saxena MD [address] [place] [address] PCP - General 06/19/17 04/09/23 documented as of this encounter
--- OUTSIDE RECORDS SUMMARY | 2025-01-02 09:43 | XMS_ITS | Encounter Summary ---
Author Organization [facility] Address [address] [place] [address] Phone Care Team Providers Care Feed Project Engineer Name Role Phone Aries Saxena MD Primary Care Provider [phone] Encounter Details Date Type Department Care Team (Late st Contact Info) Description 08/16/2014 Documentation EM Family Medicine [address] [place] [address] Family Medicine, Physician [address] [place], [place] [address] Social History Tobacco Use Types Packs/Day Years [...] on filedocumented in this encounter Care Teams Feed Project Engineer Relationship Specialty Start Date End Date Aries Saxena MD [address] [place] [address] [place] [address] PCP - General 06/19/17 04/09/23 documented as of this encounter
== END 2025-01-02 09:52 | disposition home or self-care (01) ==
PROVIDERS: PCP Nurse Practitioner Family; Visit Provider Nurse Practitioner Family
DX: Z00.00 Encounter for general adult medical examination without abnormal findings (principal); F41.9 Anxiety disorder, unspecified; F33.8 Other recurrent depressive disorders; H61.21 Impacted cerumen, right ear

== ENCOUNTER → 2025-01-02 09:06 | Outpatient (BNVA) | payer OTHER, SELFPAY | PROVIDERS: PCP Nurse Practitioner Family; Visit Provider Nurse Practitioner Family | DX: Z00.01 Encounter for general adult medical examination with abnormal findings (principal); H61.21 Impacted cerumen, right ear; F41.9 Anxiety disorder, unspecified; F33.8 Other recurrent depressive disorders | CPT/HCPCS: 69209; 96127 ==

== ENCOUNTER 2025-01-05 12:24 | Outpatient (REF) | payer OTHER, SELFPAY ==
--- OUTSIDE RECORDS SUMMARY | 2025-01-05 14:49 | XMS_ITS | Encounter Summary ---
Author Organization [facility] Address [address] [place] [address] Phone Care Team Providers Care Ice Cream Truck Driver Name Role Phone Aries Saxena MD Primary Care Provider Encounter Details Date Type Department Care Team (Late st Contact Info) Description 08/16/2014 Documentation EM Family Medicine [address] [place] [address] Family Medicine, Physician [address] [place], [place] [phone] Social History Tobacco Use Types Packs/Day Years [...] on filedocumented in this encounter Care Teams Ice Cream Truck Driver Relationship Specialty Start Date End Date Aries Saxena MD [address] [place] [address] [place] [address] PCP - General 06/19/17 04/09/23 documented as of this encounter
--- OUTSIDE RECORDS SUMMARY | 2025-01-05 14:49 | XMS_ITS | Encounter Summary ---
Author Organization [facility] Address [address] [place] [address] Phone Care Team Providers Care Executive Vp Name Role Phone Aries Saxena MD Primary Care Provider [phone] Encounter Details Date Type Department Care Team (Late st Contact Info) Description 06/25/2017 Conversion Encounter [facility] [place] [address] [place] [address] Social History Tobacco Use Types Packs/Day Years [...] on filedocumented in this encounter Care Teams Executive Vp Relationship Specialty Start Date End Date Aries Saxena MD [address] [place] [address] PCP - General 06/19/17 04/09/23 documented as of this encounter
--- OUTSIDE RECORDS SUMMARY | 2025-01-05 14:49 | XMS_ITS | Encounter Summary ---
Author Organization [facility] Address [address] [place] [address] Phone Care Team Providers Care Bituminous Distributor Operator Name Role Phone Aries Saxena MD Primary Care Provider [phone] Encounter Details Date Type Department Care Team (Late st Contact Info) Description 08/09/2014 Documentation EM Family Medicine [address] [place] [address] Family Medicine, Physician [address] [place], [place] [address] Social History Tobacco Use Types Packs/Day Years [...] on filedocumented in this encounter Care Teams Bituminous Distributor Operator Relationship Specialty Start Date End Date Aries Saxena MD [address] [place] [address] [place] [address] PCP - General 06/19/17 04/09/23 documented as of this encounter
--- OUTSIDE RECORDS SUMMARY | 2025-01-05 14:49 | XMS_ITS | Clinical Summary ---
Author Organization [facility] Address [address] [place] [address] Phone Care Team Providers Care Commodity Loan Clerk Name Role Phone Unavailable Primary Care Provider [...] of Asthma, No family history of *Sudden /[place] under 55, Family history of Hyperlipidemia Paternal Grandfather Paterjamison l grandfather: Sudden /[place] under 55 Sister Alive Sister: Alive a [...] Health Maintenance Due Date Last Done Comments DTaP,Tdap,and Td Vaccines (7 - Td or Tdap) 09/27/2019 09/27/2009, 07/26/2001, 01/23/1999, Additional history exists Influenza Vaccines (#1) 2024 10/06/20 16, 10/09/2015, 08/08/2014, Additional history exists COVID-19 Vaccine ( season) 2024 Hepatitis B Vaccines Completed 02/14/1998, [...]
[2025-01-05 16:10] LABS: MANUAL DIFF FLAG NO
[2025-01-05 16:17] LABS: Basophils Percent Auto 0.6 % (0-2); Eosinophils Absolute Auto 0.1 X10*3/uL (0.0-0.4); Hematocrit 47.2 % (42.0-52.0); Hemoglobin 15.7 g/dl (14.0-18.0); Imm Gran Abs Auto 0.03 X10*3/uL (0.00-0.03); Imm Gran Pct Auto 0.4 % (0.0-0.4); Lymphocytes Absolute Auto 2.1 X10*3/uL (1.2-4.9); Lymphocytes Percent Auto 30.3 % (20-40); Mean Corpuscular HGB Conc 33.3 g/dl (31.0-36.0); Mean Corpuscular Hemoglobin 28.4 pg (27.0-33.0); Mean Corpuscular Volume 85.4 fL (80.0-98.0); Mean Platelet Volume 9.6 fL (9.4-12.4); Monocytes Absolute Auto 0.6 X10*3/uL (0.1-1.2); Monocytes Percent Auto 8.7 % (2-11); Platelet Count 406 X10*3/uL (160-400); Red Blood Count 5.53 X10*6/uL (4.60-5.80); Red Cell Distribution Width 11.9 % (11.0-16.0); White Blood Count 6.9 X10*3/uL (4.8-10.8)
[2025-01-05 16:44] LABS: Appearance Urine Clear; Color Urine Yellow; Glucose Urine UA Negative (Negative); Leukocyte Esterase Urine Negative (Negative); Nitrite Urine Negative (Negative); PH 6.5 (5.0-9.0); Specific Gravity - Urine 1.025 (1.005-1.025); Urine Blood Negative (Negative); Urine Ketones Trace mg/dL (Negative); Urine Protein Negative (Neg-Trace)
[2025-01-05 17:00] LABS: Alanine Aminotransferase 32 U/L (0-40); Albumin Level 4.6 g/dL (3.5-5.0); Alkaline Phosphatase 64 U/L (39-117); Anion Gap 14 (12-20); Aspartate Amino Transferase 25 U/L (5-37); Bilirubin Total 0.6 mg/dL (0.0-1.0); Blood Urea Nitrogen 16 mg/dL (9-16); Calcium 9.6 mg/dL (8.4-10.2); Carbon Dioxide 28 mmol/L (22-29); Chloride 104 mmol/L (96-108); Cholesterol 234 mg/dL (<200); Estimated Glomerular Filt Rate > 60; Glucose Fasting 86 mg/dL (60-99); HDL Cholesterol 74 mg/dL (>40); LDL Cholesterol Calculated 141 mg/dL (<100); Potassium 3.9 mmol/L (3.3-5.1); Sodium 142 mmol/L (135-145); Total Protein 8.1 g/dL (6.5-8.0); Triglycerides 98 mg/dL (<150)
[2025-01-05 17:10] LABS: TSH reflex Free T4 1.51 uIU/mL (0.32-4.0)
== END 2025-01-05 12:25 | disposition home or self-care (01) ==
LOC: HO.HMGCLDS 12:24
PROVIDERS: PCP Nurse Practitioner Family; Visit Provider Nurse Practitioner Family
DX: Z00.00 Encounter for general adult medical examination without abnormal findings (principal)
CPT/HCPCS: 36415; 80053; 80061; 81003; 84443; 85025

== ENCOUNTER 2025-03-15 09:16 | Outpatient (REF) | payer OTHER, SELFPAY ==
--- OUTSIDE RECORDS SUMMARY | 2025-03-15 09:52 | XMS_ITS | Encounter Summary ---
Author Organization [facility] Address [address] [place] [address] Phone Care Team Providers Care Hotel Or Motel Manager Name Role Phone Aries Saxena MD Primary Care Provider [phone] Encounter Details Date Type Department Care Team (Late st Contact Info) Description 06/25/2017 Conversion Encounter [facility] [place] [address] [place] [address] Social History Tobacco Use Types Packs/Day Years [...] on filedocumented in this encounter Care Teams Hotel Or Motel Manager Relationship Specialty Start Date End Date Aries Saxena MD [address] [place] [address] PCP - General 06/19/17 04/09/23 documented as of this encounter
--- OUTSIDE RECORDS SUMMARY | 2025-03-15 09:52 | XMS_ITS | Clinical Summary ---
Author Organization [facility] Address [address] [place] [address] Phone Care Team Providers Care Fitness Studies Teacher Name Role Phone Unavailable Primary Care Provider [...] of Asthma, No family history of *Sudden /[place] under 55, Family history of Hyperlipidemia Paternal Grandfather Paterjamison l grandfather: Sudden /[place] under 55 Sister Alive Sister: Alive a [...]
--- OUTSIDE RECORDS SUMMARY | 2025-03-15 09:52 | XMS_ITS | Encounter Summary ---
Author Organization [facility] Address [address] [place] [address] Phone Care Team Providers Care Wallpaper Consultant Name Role Phone Aries Saxena MD Primary Care Provider [phone] Encounter Details Date Type Department Care Team (Late st Contact Info) Description 08/09/2014 Documentation EM Family Medicine [address] [place] [address] Family Medicine, Physician [address] [place], [place] [phone] Social History Tobacco Use Types Packs/Day Years [...] on filedocumented in this encounter Care Teams Wallpaper Consultant Relationship Specialty Start Date End Date Aries Saxena MD [address] [place] [address] [place] [address] PCP - General 06/19/17 04/09/23 documented as of this encounter
--- OUTSIDE RECORDS SUMMARY | 2025-03-15 09:52 | XMS_ITS | Encounter Summary ---
Author Organization [facility] Address [address] [place] [address] Phone Care Team Providers Care Utility System Operator Name Role Phone Aries Saxena MD Primary Care Provider [phone] Encounter Details Date Type Department Care Team (Late st Contact Info) Description 08/16/2014 Documentation EM Family Medicine [address] [place] [address] Family Medicine, Physician [address] [place], [place] [phone] Social History Tobacco Use Types Packs/Day Years [...] on filedocumented in this encounter Care Teams Utility System Operator Relationship Specialty Start Date End Date Aries Saxena MD [address] [place] [address] [place] [address] PCP - General 06/19/17 04/09/23 documented as of this encounter
[2025-03-15 10:10] LABS: MANUAL DIFF FLAG NO
[2025-03-15 10:13] LABS: Appearance Urine Clear; Color Urine Yellow; Glucose Urine UA Negative (Negative); Leukocyte Esterase Urine Negative (Negative); Nitrite Urine Negative (Negative); Specific Gravity - Urine >= 1.030 (1.005-1.025); Urine Blood Negative (Negative); Urine Ketones Negative (Negative); Urine Protein Negative (Neg-Trace)
[2025-03-15 10:15] LABS: Basophils Percent Auto 0.6 % (0-2); Eosinophils Absolute Auto 0.4 X10*3/uL (0.0-0.4); Eosinophils Percent Auto 6.1 % (0-4); Hemoglobin 15.8 g/dl (14.0-18.0); Imm Gran Abs Auto 0.03 X10*3/uL (0.00-0.03); Imm Gran Pct Auto 0.5 % (0.0-0.4); Lymphocytes Absolute Auto 2.2 X10*3/uL (1.2-4.9); Lymphocytes Percent Auto 33.6 % (20-40); Mean Corpuscular HGB Conc 34.3 g/dl (31.0-36.0); Mean Corpuscular Hemoglobin 28.3 pg (27.0-33.0); Mean Corpuscular Volume 82.4 fL (80.0-98.0); Mean Platelet Volume 9.4 fL (9.4-12.4); Monocytes Absolute Auto 0.7 X10*3/uL (0.1-1.2); Monocytes Percent Auto 11.4 % (2-11); Neutrophils Absolute Auto 3.1 x10*3/uL (2.0-8.3); Neutrophils Percent Auto 47.8 % (45-73); Platelet Count 359 X10*3/uL (160-400); Red Blood Count 5.58 X10*6/uL (4.60-5.80); Red Cell Distribution Width 11.8 % (11.0-16.0); White Blood Count 6.4 X10*3/uL (4.8-10.8)
[2025-03-15 11:14] LABS: Alanine Aminotransferase 55 U/L (0-40); Albumin Level 4.5 g/dL (3.5-5.0); Alkaline Phosphatase 69 U/L (39-117); Anion Gap 11 (12-20); Aspartate Amino Transferase 26 U/L (5-37); Bilirubin Total 0.4 mg/dL (0.0-1.0); Blood Urea Nitrogen 16 mg/dL (9-16); Calcium 9.2 mg/dL (8.4-10.2); Carbon Dioxide 24 mmol/L (22-29); Chloride 109 mmol/L (96-108); Cholesterol 190 mg/dL (<200); Estimated Glomerular Filt Rate > 60; Glucose Fasting 84 mg/dL (60-99); HDL Cholesterol 43 mg/dL (>40); LDL Cholesterol Calculated 125 mg/dL (<100); Potassium 3.9 mmol/L (3.3-5.1); Sodium 140 mmol/L (135-145); TSH reflex Free T4 1.28 uIU/mL (0.32-4.0); Total Protein 7.3 g/dL (6.5-8.0); Triglycerides 112 mg/dL (<150)
== END 2025-03-15 09:17 | disposition home or self-care (01) ==
LOC: HO.HMGCLDS 09:16
PROVIDERS: PCP Nurse Practitioner Family; Visit Provider Nurse Practitioner Family
DX: Z00.00 Encounter for general adult medical examination without abnormal findings (principal); R74.8 Abnormal levels of other serum enzymes
CPT/HCPCS: 36415; 80053; 80061; 81003; 84443; 85025

== ENCOUNTER 2025-04-14 08:23 | Outpatient (REF) | payer OTHER, SELFPAY ==
--- NOTE | ~2025-04-14 | US_ITS ---
CLINICAL HISTORY: R74.8 - Abnormal levels of other serum enzymes US abdomen complete with color Doppler Comparison: None Findings: The visualized pancreas, aorta, and inferior vena cava are unremarkable. Liver normal size and echogenic throughout. Right lobe 15.7 cm length. Focal fatty sparing near the gallbladder fossa. Common duct 2.2 mm diameter. Physiologic distention of the gallbladder. No gallstones or sludge. No gallbladder wall thickening. No pericholecystic fluid. No sonographic Higgins sign. Main portal vein antegrade. Right kidney normal size, 10.6 cm in length. Normal cortical width and echotexture. No solid or cystic renal masses. No nephrolithiasis. No hydronephrosis. Left kidney normal, 10.6 cm in length. Normal cortical width and echotexture. No solid or cystic renal masses. No nephrolithiasis. No hydronephrosis. Spleen measures 9.1 cm. No splenic masses. No ascites. No lymphadenopathy. Impression: 1. Hepatic steatosis with focal fatty sparing. This document has been electronically signed by: Steven White MD on 04/14/2025 11:48:59
--- OUTSIDE RECORDS SUMMARY | 2025-04-14 08:29 | XMS_ITS | Patient Health Record ---
[facility] Address [address] [address] Care Team Providers Care Plate Cleaner Name Role Phone Aries Saxena MD Primary Care Provider Unavail able Felicia Peres Unavailable [phone] Reason For Referral No Information Medications Medication SIG (Take, Route, Frequency, Duration) Notes Start Date End Date Status School Note . . . . for . 07/27/2012 Act renan Albuterol Active Flovent Diskus 250 MCG/BLIST as directed Inhalation Activ e Problems Problem Type SNOMED Code ICD Code Onset Dates Problem Status W/U Status Risk Notes Problem Foot ulcer (65887480) Ulcer of Other Part of Foot (707.15) Active confirmed Problem Cellulitis and abscess of toe (834997564) Celluitis - Toes (681.10) Active confirmed Problem Ingrowing nail (337738579) Ingrowing Nail (703.0) Active confirmed Problem Paronychia (25705844) Paronychia (681.11) Active confirmed Problem Foot ulcer (34141884) Ulcer of Other Part of Foot (707.15) Active confirmed Plan Of Treatment Pending Test Test Name Order Date [id number] 09/19/2011 [id number] 10/07/2011 [id number] 02/10/2012 30280-CKT 06/23/2012 45659- Debride <25 sq cm 03/19/2012 [id number] SKIN/TISSUE 03/04/2012 [id number] SKIN/TISSUE 10/07/2011 [id number] SKIN/TISSUE 10/28/2011 [id number] SKIN/TISSUE 07/27/2012 85231 I&D ABSCESS- SIMPLE,SINGLE 012 53419 I&D ABSCESS- SIMPLE,SINGLE 012 39621- I&D ABSCESS-COMPLICATED,MULTI 04/2011 Insurance Providers Payer Name Payer Address Payer Phone Subscriber Number Group Number Insured Name Patient Relationship to Insured Coverage Start Date Coverage End Date [employer] Benefits [address] [address] [place] [address] [id number] Sheri Payne Natural Child - Insured has Financial Responsibility Medical (General) History Medical History History ICD Code chicken pox asthma Surgical History Surgery Date(Month/Year)
== END 2025-04-14 08:24 | disposition home or self-care (01) ==
LOC: HO.HMGCX 08:23
PROVIDERS: PCP Nurse Practitioner Family; Visit Provider Nurse Practitioner Family
DX: R74.8 Abnormal levels of other serum enzymes (principal)
CPT/HCPCS: 76700

== ENCOUNTER → 2025-04-14 08:36 | Outpatient (BNV) | payer OTHER, SELFPAY | PROVIDERS: PCP Nurse Practitioner Family; Visit Provider Radiology Diagnostic Radiology | DX: K76.0 Fatty (change of) liver, not elsewhere classified (principal) | CPT/HCPCS: 76700 ==